=== PATIENT | female | born 1985 | race Caucasian/White ===

== ENCOUNTER 2016-04-06 01:58 | Emergency (ER) | payer MEDICARE, MEDICAID ==
[~2016-04-06] VITALS: Ht 160 cm; Wt 61.2 kg
[~2016-04-06 01:58] MED LIST: AMOXICILLIN500 M2 PO; AMOXICILLIN500 MG PO; ANAPROX DS550 MG PO; ATARAX,VISTARIL50 MG PO; ATARAX25 MG PO; ATIVAN1 MG PO; AUGMENTIN 875 M1 TAB PO; BACTRIM DS 8001 TA1 PO; BENADRYL25 MG PO; BENTYL20 MG PO; CARBIDOPA/LEVOD1 TA1 PO; CEPHALEXIN500 M1 PO; CIPRO250 MG PO; CLARITIN10 MG PO; DARVOCET N 1001 TAB PO; DIFLUCAN150 MG PO; DOXYCYCLINE HY100 M3 PO; DURICEF500 MG PO; EPI EZ PEN1 MG/ML IM; FLAGYL500 MG PO; FLEXERIL10 MG PO; FLOMAX0.4 MG PO; GEODON60 MG PO; HYDROCODONE BIT1 T11 PO; IBU-8800 MG PO; KEFLEX500 M1 PO; KEFLEX500 MG PO; KETOROLAC10 MG PO; KLONOPIN0.5 MG PO; LEVOFLOXACIN500 MG PO; LEXAPRO20 MG PO; LIDEX0.05% T; LOMOTIL 0.025 M1 TAB PO; MACROBID100 M1 PO; MEDROL DOSEPAK4 MG PO; MOTRIN800 MG PO; Motrin,Rufen800 MG PO; NAPROSYN500 MG PO; NITROFURANTOIN100 M2 PO; NKHM; NKHM PO; PEPCID20 MG PO; PERCOCET 325 MG1 TA5 PO; PERCOCET 325 MG1 TA6 PO; PERCOCET 325 MG1 TA7 PO; PREDNICOT20 MG PO; PREDNISONE10 MG PO; PREDNISONE20 MG PO; PRENATAL1 TA1 PO; PROVENTIL0.09 MG/AC IH; PYRIDIUM200 M1 PO; PYRIDIUM200 MG PO; RISPERDAL0.25 MG PO; SUBOXONE 8 MG-1 EACH SL; Synthroid,Levo25 MCG PO; TOBREX OPHTH S2.5 ML OPH; TRAMADOL HCL50 MG PO; TRAZADONE HYDR100 MG PO; ULTRAM50 MG PO; VALIUM10 MG PO; VIBRAMYCIN100 MG PO; VICODIN 5/500 505 MG PO; VICODIN 500 MG-1 TAB PO; XANAX0.5 MG PO; XANAX1 MG PO; XANAX2 MG PO; ZANTAC150 MG PO; ZITHROMAX Z PA250 MG PO; ZITHROMAX500 MG PO; ZOFRAN ODT4 MG SL; ZOFRAN4 MG PO
[2016-04-06] MEDS ORDERED: CLINDAMYCIN150 MG PO (02:20)
[2016-04-06] MEDS ORDERED: Bactroban Oint22 GM T (02:20)
[2016-04-06] MEDS ORDERED: BACTRIM DS 8001 TA1 PO (02:20)
[2016-05-06] MEDS ORDERED: SUBOXONE 8 MG-1 EACH SL (13:39)
[2016-05-06] MEDS ORDERED: BACTRIM DS 8001 TA1 PO (16:30)
[2016-05-12] MEDS ORDERED: AMINOPHYLLIN200 MG PO (19:24)
[2016-05-26] MEDS ORDERED: NAPROSYN500 MG PO (12:44)
[2016-05-26] MEDS ORDERED: CEFUROXIME250 MG PO (12:44)
[2016-05-26] MEDS ORDERED: ZOFRAN4 MG PO (12:44)
== END 2016-04-06 02:31 | disposition home or self-care (01) ==
LOC: ED 01:58
DX: L01.00 Impetigo, unspecified (principal); K21.9 Gastro-esophageal reflux disease without esophagitis; F14.10 Cocaine abuse, uncomplicated; F41.9 Anxiety disorder, unspecified; F12.10 Cannabis abuse, uncomplicated; F11.10 Opioid abuse, uncomplicated; F17.200 Nicotine dependence, unspecified, uncomplicated

== ENCOUNTER 2016-06-10 13:58 | Inpatient (IN) | payer MEDICARE, MEDICAID ==
[~2016-06-10] VITALS: Ht 160 cm; Wt 66.3 kg
[~2016-06-10 13:58] MED LIST changes: +AMINOPHYLLIN200 MG PO; +Bactroban Oint22 GM T; +CEFUROXIME250 MG PO; +CLINDAMYCIN150 MG PO
[2016-06-10 14:30] VITALS: BP 108/71
[2016-06-10 15:07] LABS: BASO # 0.1 10*3/uL (0.0-0.1); BASO % 0.7 % (0.0-1.0); EOS # 0.1 10*3/uL (0.0-0.4); EOS % 1.4 % (1.0-4.0); HEMATOCRIT 41.8 % (37.0-47.0); HEMOGLOBIN 13.5 g/dl (12.0-16.0); LYMPH # 1.7 10*3/uL (1.3-4.4); LYMPH % 18.1 % (27.0-41.0); MEAN CELL VOLUME 93.7 fl (81.0-99.0); MEAN CORPUSCULAR HGB 30.3 pg (27.0-31.0); MEAN CORPUSCULAR HGB CONC 32.3 g/dl (33.0-37.0); MEAN PLATELET VOLUME 9.1 fl (9.6-12.3); MONO # 0.9 10*3/uL (0.1-1.0); MONO % 9.6 % (3.0-9.0); NEUT # 6.4 10*3/uL (2.3-7.9); PLATELET COUNT AUTOMATED 381 10*3/uL (130-400); RED BLOOD COUNT 4.46 10*6/uL (4.10-5.10); RED CELL DISTRI WIDTH 13.9 % (0-14.5); WHITE BLOOD COUNT 9.1 10*3/uL (4.8-10.8)
[2016-06-10 15:18] LABS: PROTHROMBIN TIME 10.4 SECONDS (9.0-12.4)
[2016-06-10 15:24] LABS: ALBUMIN 3.7 gm/dl (3.1-4.5); CARBON DIOXIDE 27 mmol/L (21-32); CHLORIDE 103 mmol/L (98-107); EST GLOM FILT AFRICAN AMERICAN > 60 ml/min; GLUCOSE 76 mg/dL (65-99); POTASSIUM 3.6 mmol/L (3.5-5.1); SGOT/AST 148 IU/L (3-35); SGPT/ALT 261 U/L (12-78); SODIUM 139 mmol/L (136-145)
[2016-06-10 15:31] LABS: ALKALINE PHOSPHATASE 128 U/L (45-117); BILIRUBIN, TOTAL 0.3 mg/dl (0.2-1.0); BUN 10 mg/dl (7-24)
[2016-06-10 15:38] LABS: BILIRUBIN NEGATIVE (NEGATIVE); BLOOD TRACE-INTACT (NEGATIVE); CLARITY SL CLOUDY (CLEAR); COLOR YELLOW (YELLOW); GLUCOSE NEGATIVE (NEGATIVE); KETONE NEGATIVE (NEGATIVE); LEUKO ESTERASE TRACE (NEGATIVE); NITRITE POSITIVE (NEGATIVE); PROTEIN NEGATIVE (NEGATIVE); UROBILINOGEN 0.2 E.U./dl (0.2-1.0)
[2016-06-10 15:44] LABS: URINE AMPHETAMINES < 1000 (1000ng/ml); URINE BARBITURATES < 200 (200ng/ml); URINE COCAINE > 300 (300ng/ml)
[2016-06-10 15:53] LABS: BACTERIA 4+; EPITHELIAL CELLS 0-2; RBC 0-2 rbc/hpf (0-2); URINE REFLEX COMMENT YES (NO)
[2016-06-10 16:00] VITALS: BP 123/69
[2016-06-11] VITALS: BP 102/54
[2016-06-11 04:00] VITALS: BP 110/48
[2016-06-11 08:00] VITALS: BP 112/48
[2016-06-11 16:00] VITALS: BP 100/56
== END 2016-06-11 19:43 | disposition left against medical advice (07) | DRG 894 ==
LOC: 5E 13:58
PROVIDERS: Internal Medicine
DX: F11.23 Opioid dependence with withdrawal (principal); N39.0 Urinary tract infection, site not specified; B18.2 Chronic viral hepatitis C; Z53.21 Procedure and treatment not carried out due to patient leaving prior to being seen by health care provider; F41.9 Anxiety disorder, unspecified; K21.9 Gastro-esophageal reflux disease without esophagitis; F12.10 Cannabis abuse, uncomplicated; Z98.51 Tubal ligation status; Z98.891 History of uterine scar from previous surgery; Z90.49 Acquired absence of other specified parts of digestive tract; Z82.49 Family history of ischemic heart disease and other diseases of the circulatory system; Z83.3 Family history of diabetes mellitus; Z80.2 Family history of malignant neoplasm of other respiratory and intrathoracic organs; Z84.89 Family history of other specified conditions; Z79.899 Other long term (current) drug therapy; Z71.6 Tobacco abuse counseling

== ENCOUNTER 2016-08-27 14:16 | Emergency (ER) | payer MEDICARE, MEDICAID ==
[~2016-08-27] VITALS: Wt 63.5 kg
[2016-08-27 14:36] LABS: BILIRUBIN NEGATIVE (NEGATIVE); BLOOD NEGATIVE (NEGATIVE); CLARITY SL CLOUDY (CLEAR); COLOR YELLOW (YELLOW); GLUCOSE NEGATIVE (NEGATIVE); KETONE NEGATIVE (NEGATIVE); LEUKO ESTERASE NEGATIVE (NEGATIVE); NITRITE POSITIVE (NEGATIVE); PROTEIN NEGATIVE (NEGATIVE); UROBILINOGEN 0.2 E.U./dl (0.2-1.0)
[2016-08-27 14:49] LABS: BACTERIA 3+; URINE REFLEX COMMENT YES (NO)
[2016-08-27 14:50] LABS: EPITHELIAL CELLS 21-30; RBC 0-2 rbc/hpf (0-2)
[2016-08-27] MEDS ORDERED: FLONASE ALLERG9.9 ML NAS (14:56)
[2016-08-27] MEDS ORDERED: BACTRIM DS 8001 TA1 PO (14:56)
[2016-08-27] MEDS ORDERED: CLARITIN10 MG PO (14:56)
== END 2016-08-27 15:37 | disposition home or self-care (01) ==
LOC: ED 14:16
PROVIDERS: Emergency Medicine
DX: J06.9 Acute upper respiratory infection, unspecified (principal); N30.01 Acute cystitis with hematuria; F17.200 Nicotine dependence, unspecified, uncomplicated

== ENCOUNTER 2016-09-26 12:49 | Emergency (ER) | payer MEDICARE, MEDICAID ==
[~2016-09-26] VITALS: Ht 160 cm; Wt 68.0 kg
[~2016-09-26 12:49] MED LIST changes: +FLONASE ALLERG9.9 ML NAS
[2016-09-26] MEDS ORDERED: SUBOXONE 8 MG-1 EACH SL (13:03)
[2016-09-26] MEDS ORDERED: BACTRIM DS 8001 TA1 PO (13:12)
[2016-09-26] MEDS ORDERED: KEFLEX500 M1 PO (13:12)
[2016-09-26] MEDS ORDERED: NAPROSYN500 MG PO (13:13)
== END 2016-09-26 13:26 | disposition home or self-care (01) ==
LOC: ED 12:49
DX: L73.9 Follicular disorder, unspecified (principal); K21.9 Gastro-esophageal reflux disease without esophagitis; F11.10 Opioid abuse, uncomplicated; F12.10 Cannabis abuse, uncomplicated; F17.200 Nicotine dependence, unspecified, uncomplicated; Z86.19 Personal history of other infectious and parasitic diseases

== ENCOUNTER → 2016-10-25 | Outpatient (CLI) | payer MEDICARE, MEDICAID ==
[2016-10-25 13:16] LABS: ALKALINE PHOSPHATASE 78 U/L (45-117); BILIRUBIN, DIRECT < 0.1 mg/dL (0.0-0.2); BILIRUBIN, TOTAL 0.3 mg/dl (0.2-1.0); SGOT/AST 58 IU/L (3-35); SGPT/ALT 77 U/L (12-78); TOTAL PROTEIN 8.2 gm/dL (6.4-8.2)
== END | disposition home or self-care (01) ==
LOC: LAB 12:22
PROVIDERS: Family Medicine
DX: F11.20 Opioid dependence, uncomplicated (principal)

== ENCOUNTER → 2017-10-06 | Outpatient (CLI) | payer MEDICARE, MEDICAID ==
[2017-10-06 16:09] LABS: BASO # 0.1 10*3/uL (0.0-0.1); BASO % 0.6 % (0.0-1.0); EOS # 0.2 10*3/uL (0.0-0.4); EOS % 1.5 % (1.0-4.0); HEMATOCRIT 40.9 % (37.0-47.0); HEMOGLOBIN 12.8 g/dl (12.0-16.0); LYMPH # 2.1 10*3/uL (1.3-4.4); LYMPH % 15.5 % (27.0-41.0); MEAN CELL VOLUME 98.6 fl (81.0-99.0); MEAN CORPUSCULAR HGB 30.8 pg (27.0-31.0); MEAN CORPUSCULAR HGB CONC 31.3 g/dl (33.0-37.0); MONO # 0.7 10*3/uL (0.1-1.0); NEUT # 10.4 10*3/uL (2.3-7.9); PLATELET COUNT AUTOMATED 340 10*3/uL (130-400); RED BLOOD COUNT 4.15 10*6/uL (4.10-5.10); RED CELL DISTRI WIDTH 13.6 % (0-14.5); WHITE BLOOD COUNT 13.5 10*3/uL (4.8-10.8)
[2017-10-06 16:26] LABS: ALBUMIN 3.7 gm/dl (3.1-4.5); ALKALINE PHOSPHATASE 80 U/L (45-117); BILIRUBIN, DIRECT < 0.1 mg/dL (0.0-0.2); BUN 5 mg/dl (7-24); CHLORIDE 107 mmol/L (98-107); CREATININE 0.95 mg/dL (0.55-1.02); POTASSIUM 3.5 mmol/L (3.5-5.1); SGOT/AST 18 IU/L (3-35); SGPT/ALT 33 U/L (12-78); SODIUM 139 mmol/L (136-145); THYROXINE (T4) TOTAL 9.5 ug/dl (4.8-13.9)
[2017-10-06 16:29] LABS: THYROID STIM HORMONE (HS) 0.202 uIU/ml (0.358-4.75)
[2017-10-06 17:18] LABS: VITAMIN D, 25-HYDROXY 37.1 ng/mL (30-100)
[2017-10-10 22:05] LABS: HCV LOG10 5.738 (.); HEPATITIS C QNT 547000 IU/mL (.)
== END | disposition home or self-care (01) ==
LOC: LAB 15:03
PROVIDERS: Nurse Practitioner Family
DX: Z13.1 Encounter for screening for diabetes mellitus (principal); Z13.21 Encounter for screening for nutritional disorder; B19.20 Unspecified viral hepatitis C without hepatic coma; R60.9 Edema, unspecified; E55.9 Vitamin D deficiency, unspecified; Z79.899 Other long term (current) drug therapy; Z87.898 Personal history of other specified conditions; Z91.89 Other specified personal risk factors, not elsewhere classified; Z87.891 Personal history of nicotine dependence

== ENCOUNTER 2017-10-20 18:11 | Emergency (ER) | payer MEDICARE, MEDICAID ==
[~2017-10-20] VITALS: Ht 160 cm; Wt 67.6 kg
--- NOTE | ~2017-10-20 | EKG ---
[place], [place] ELECTROCARDIOGRAM REPORT NAME: MARK PAUL UNIT #: [id number] ROOM: DOCTOR: EPIPHANY DRAFT REPORT BIRTHDATE: [birth year] [facility] Test Date: 2017-10-20 Test Time: 18:36:15 Pat Name: MARK PAUL Department: Room: Gender: F Learning Facilitator: EKG.OK : 1985 Requested By: BLANCA FARR DNP Order Number: [id number] Reading MD: Natalia Gilliam MD Measurements Intervals [place] Rate: 62 P: 19 AR: 185 QRS: 70 QRSD: 103 T: 42 QT: 412 QTc: 419 Interpretive Statements Sinus rhythm Electronically Signed On 10-22-2017 9:32:31 PDT by Natalia Gilliam MD CM:EKGRPT:ELECTROCARDIOGRAM REPORT [id number] BLANCA GOODWIN DRAFT REPORT BLANCA FARR DNP
[2017-10-20 18:52] LABS: BASO # 0.1 10*3/uL (0.0-0.1); BASO % 0.6 % (0.0-1.0); EOS # 0.2 10*3/uL (0.0-0.4); EOS % 1.3 % (1.0-4.0); HEMATOCRIT 38.4 % (37.0-47.0); HEMOGLOBIN 12.5 g/dl (12.0-16.0); LYMPH # 2.3 10*3/uL (1.3-4.4); LYMPH % 18.1 % (27.0-41.0); MEAN CORPUSCULAR HGB 30.9 pg (27.0-31.0); MEAN CORPUSCULAR HGB CONC 32.6 g/dl (33.0-37.0); MEAN PLATELET VOLUME 9.6 fl (9.6-12.3); MONO # 0.7 10*3/uL (0.1-1.0); MONO % 5.9 % (3.0-9.0); NEUT # 9.2 10*3/uL (2.3-7.9); NEUT % 73.8 % (47.0-73.0); PLATELET COUNT AUTOMATED 358 10*3/uL (130-400); RED BLOOD COUNT 4.04 10*6/uL (4.10-5.10); RED CELL DISTRI WIDTH 13.2 % (0-14.5); WHITE BLOOD COUNT 12.4 10*3/uL (4.8-10.8)
[2017-10-20 19:08] LABS: ALBUMIN 3.5 gm/dl (3.1-4.5); ALKALINE PHOSPHATASE 72 U/L (45-117); BUN 11 mg/dl (7-24); CHLORIDE 108 mmol/L (98-107); CREATININE 0.95 mg/dL (0.55-1.02); POTASSIUM 3.6 mmol/L (3.5-5.1); SGOT/AST 19 IU/L (3-35); SGPT/ALT 23 U/L (12-78); SODIUM 139 mmol/L (136-145); TOTAL PROTEIN 7.2 gm/dL (6.4-8.2)
[2017-10-20 19:09] LABS: BILIRUBIN NEGATIVE (NEGATIVE); BLOOD NEGATIVE (NEGATIVE); CLARITY CLEAR (CLEAR); COLOR YELLOW (YELLOW); GLUCOSE NEGATIVE (NEGATIVE); KETONE NEGATIVE (NEGATIVE); LEUKO ESTERASE NEGATIVE (NEGATIVE); NITRITE NEGATIVE (NEGATIVE); SPECIFIC GRAVITY 1.025 (1.005-1.030); UROBILINOGEN 0.2 E.U./dl (0.2-1.0)
[2017-10-20 19:14] LABS: BACTERIA 1+; MUCOUS TRACE
== END 2017-10-20 19:55 ==
LOC: ED 18:11
PROVIDERS: Nurse Practitioner Family
DX: R39.15 Urgency of urination (principal); R78.81 Bacteremia; R10.30 Lower abdominal pain, unspecified; F14.90 Cocaine use, unspecified, uncomplicated; F17.200 Nicotine dependence, unspecified, uncomplicated; Z90.89 Acquired absence of other organs; Z98.890 Other specified postprocedural states; Z98.51 Tubal ligation status; Z90.49 Acquired absence of other specified parts of digestive tract

== ENCOUNTER 2017-11-14 04:51 | Emergency (ER) | payer MEDICARE ==
[~2017-11-14] VITALS: Ht 160 cm; Wt 63.5 kg
[2017-11-14] MEDS ORDERED: CLINDAMYCIN150 MG PO (05:28)
[2017-11-14] MEDS ORDERED: KEFLEX250 MG PO (05:28)
[2018-01-05] MEDS ORDERED: PYRIDIUM200 M1 PO (09:57)
[2018-01-05] MEDS ORDERED: MACROBID100 M1 PO (09:57)
[2018-01-05] MEDS ORDERED: ZOFRAN4 MG PO (09:57)
== END 2017-11-14 05:31 | disposition home or self-care (01) ==
LOC: ED 04:51
DX: L02.91 Cutaneous abscess, unspecified (principal); F17.200 Nicotine dependence, unspecified, uncomplicated; Z98.890 Other specified postprocedural states; Z90.49 Acquired absence of other specified parts of digestive tract; Z98.51 Tubal ligation status

== ENCOUNTER 2018-02-26 09:40 | Inpatient (IN) | payer MEDICARE, MEDICAID ==
[~2018-02-26] VITALS: Ht 160 cm; Wt 64.8 kg
--- NOTE | ~2018-02-26 | EKG ---
[place], [place] ELECTROCARDIOGRAM REPORT NAME: MARK PAUL UNIT #: [id number] ROOM: 520 DOCTOR: BUDDY DRAFT REPORT BIRTHDATE: [birth year] [facility] Test Date: 2018-02-26 Test Time: 15:19:21 Pat Name: MARK PAUL Department: Room: 520 1 Gender: F Facilities Management Executive: 0012 : 1985 Requested By: NARENDRA THORPE Order Number: [id number] Reading MD: Brendan Segura MD Measurements Intervals [place] Rate: 64 P: 51 TN: 173 QRS: 80 QRSD: 99 T: 54 QT: 413 QTc: 426 Interpretive Statements Sinus rhythm Compared to ECG 10/20/2017 18:36:15 No significant changes Electronically Signed On 02-26-2018 17:11:05 PST by Brendan Segura MD CM:EKGRPT:ELECTROCARDIOGRAM REPORT [id number] NARENDRA WAGNER DRAFT REPORT NARENDRA THORPE DO
[~2018-02-26 09:40] MED LIST changes: +KEFLEX250 MG PO
[2018-02-26 10:40] VITALS: BP 97/73
[2018-02-26 12:41] LABS: BASO # 0.1 10*3/uL (0.0-0.1); BASO % 0.8 % (0.0-1.0); EOS # 0.2 10*3/uL (0.0-0.4); EOS % 2.5 % (1.0-4.0); HEMOGLOBIN 12.3 g/dl (12.0-16.0); LYMPH # 1.8 10*3/uL (1.3-4.4); LYMPH % 21.9 % (27.0-41.0); MEAN CORPUSCULAR HGB 28.3 pg (27.0-31.0); MEAN CORPUSCULAR HGB CONC 30.8 g/dl (33.0-37.0); MEAN PLATELET VOLUME 9.4 fl (9.6-12.3); MONO # 0.6 10*3/uL (0.1-1.0); MONO % 7.4 % (3.0-9.0); NEUT # 5.7 10*3/uL (2.3-7.9); NEUT % 67.2 % (47.0-73.0); PLATELET COUNT AUTOMATED 412 10*3/uL (130-400); RED BLOOD COUNT 4.35 10*6/uL (4.10-5.10); RED CELL DISTRI WIDTH 13.9 % (0-14.5); WHITE BLOOD COUNT 8.4 10*3/uL (4.8-10.8)
[2018-02-26 12:57] LABS: ALBUMIN 3.3 gm/dl (3.1-4.5); ALKALINE PHOSPHATASE 83 U/L (45-117); BUN 6 mg/dl (7-24); CHLORIDE 105 mmol/L (98-107); CREATININE 0.71 mg/dL (0.55-1.02); POTASSIUM 4.1 mmol/L (3.5-5.1); SGOT/AST 27 IU/L (3-35); SGPT/ALT 30 U/L (12-78); SODIUM 137 mmol/L (136-145); TOTAL PROTEIN 7.3 gm/dL (6.4-8.2)
[2018-02-26 13:01] LABS: BETA-HCG, QUANT < 1.0 mIU/mL (1-3); ETHYL ALCOHOL < 3.0 mg/dl (<3)
[2018-02-26 14:12] LABS: BILIRUBIN NEGATIVE (NEGATIVE); BLOOD NEGATIVE (NEGATIVE); CLARITY SL CLOUDY (CLEAR); COLOR YELLOW (YELLOW); GLUCOSE NEGATIVE (NEGATIVE); KETONE NEGATIVE (NEGATIVE); LEUKO ESTERASE TRACE (NEGATIVE); NITRITE POSITIVE (NEGATIVE); SPECIFIC GRAVITY <= 1.005 (1.005-1.030); UROBILINOGEN 0.2 E.U./dl (0.2-1.0)
[2018-02-26 14:21] LABS: URINE AMPHETAMINES < 1000 (1000ng/ml); URINE BARBITURATES < 200 (200ng/ml); URINE BENZODIAZEPINES < 200 (200ng/ml); URINE CANNABINOIDS (THC) > 50 (50ng/ml); URINE COCAINE > 300 (300ng/ml); URINE METHADONE < 300 (300ng/ml); URINE OPIATES > 300 (300ng/ml)
[2018-02-26 14:22] LABS: BACTERIA 3+
[2018-02-26 14:35] LABS: URINE PHENCYCLIDINE < 25 (25ng/ml)
[2018-02-26 16:00] VITALS: BP 110/61
[2018-02-26 20:00] VITALS: BP 98/49
[2018-02-27] VITALS: BP 95/47
[2018-02-27 04:00] VITALS: BP 100/48
[2018-02-27 08:00] VITALS: BP 104/58
[2018-02-27 12:00] VITALS: BP 101/63
[2018-02-27 16:00] VITALS: BP 110/64
[2018-02-27 20:00] VITALS: BP 100/45
[2018-02-28] VITALS: BP 95/52
[2018-02-28 08:00] VITALS: BP 94/53
[2018-02-28 16:00] VITALS: BP 107/60
[2018-02-28 20:00] VITALS: BP 104/50
[2018-03-01] VITALS: BP 132/67
[2018-03-01 07:33] LABS: BASO # 0.1 10*3/uL (0.0-0.1); EOS # 0.2 10*3/uL (0.0-0.4); EOS % 2.9 % (1.0-4.0); HEMATOCRIT 37.3 % (37.0-47.0); HEMOGLOBIN 11.9 g/dl (12.0-16.0); LYMPH % 25.6 % (27.0-41.0); MEAN CELL VOLUME 90.8 fl (81.0-99.0); MEAN CORPUSCULAR HGB CONC 31.9 g/dl (33.0-37.0); MEAN PLATELET VOLUME 9.5 fl (9.6-12.3); MONO # 0.6 10*3/uL (0.1-1.0); MONO % 7.4 % (3.0-9.0); NEUT # 4.9 10*3/uL (2.3-7.9); PLATELET COUNT AUTOMATED 396 10*3/uL (130-400); RED BLOOD COUNT 4.11 10*6/uL (4.10-5.10); RED CELL DISTRI WIDTH 13.5 % (0-14.5); WHITE BLOOD COUNT 7.9 10*3/uL (4.8-10.8)
[2018-03-01 07:34] LABS: CREATININE 0.78 mg/dL (0.55-1.02)
[2018-03-01 08:00] VITALS: BP 90/53
[2018-03-01] MEDS ORDERED: ATARAX,VISTARIL50 MG PO (11:52)
[2018-03-01] MEDS ORDERED: NITROFURANTOIN100 M9 PO (11:52)
[2018-03-01] MEDS ORDERED: ZOFRAN 4 MG ED2 TAB PO (11:52)
== END 2018-03-01 12:48 | disposition home or self-care (01) | DRG 897 ==
LOC: 5E 09:40
PROVIDERS: Family Medicine; Internal Medicine
DX: F11.23 Opioid dependence with withdrawal (principal); E44.0 Moderate protein-calorie malnutrition; N30.00 Acute cystitis without hematuria; F12.10 Cannabis abuse, uncomplicated; F14.90 Cocaine use, unspecified, uncomplicated; D47.3 Essential (hemorrhagic) thrombocythemia; K21.9 Gastro-esophageal reflux disease without esophagitis; B18.2 Chronic viral hepatitis C; F31.9 Bipolar disorder, unspecified; F43.10 Post-traumatic stress disorder, unspecified; B96.20 Unspecified Escherichia coli [E. coli] as the cause of diseases classified elsewhere; F17.210 Nicotine dependence, cigarettes, uncomplicated; Z71.6 Tobacco abuse counseling; Z98.51 Tubal ligation status; Z90.49 Acquired absence of other specified parts of digestive tract; Z82.49 Family history of ischemic heart disease and other diseases of the circulatory system; Z83.3 Family history of diabetes mellitus; Z80.8 Family history of malignant neoplasm of other organs or systems; Z82.3 Family history of stroke; Z68.25 Body mass index [BMI] 25.0-25.9, adult

== ENCOUNTER 2018-11-04 00:52 | Emergency (ER) | payer MEDICARE ==
[~2018-11-04] VITALS: Ht 160 cm; Wt 63.5 kg
--- NOTE | ~2018-11-04 | EKG ---
[place], [place] ELECTROCARDIOGRAM REPORT NAME: MARK PAUL UNIT #: [id number] ROOM: DOCTOR: EPIPHANY DRAFT REPORT BIRTHDATE: [birth year] [facility] Test Date: 2018-11-04 Test Time: 01:48:24 Pat Name: MARK PAUL Department: Room: Gender: F Gang Boss: : 1985 Requested By: JOSE WALSH Order Number: [id number] Reading MD: Frances Dill MD Measurements Intervals [place] Rate: 103 P: 31 MS: 160 QRS: 49 QRSD: 95 T: 31 QT: 322 QTc: 422 Interpretive Statements Sinus tachycardia Probable left atrial enlargement Baseline wander in lead(s) V2 Compared to ECG 02/26/2018 15:19:21 Sinus rhythm no longer present Electronically Signed On 11-05-2018 15:00:35 PDT by Frances Dill MD CM:EKGRPT:ELECTROCARDIOGRAM REPORT [id number] 1500 JOSE WALSH EPIPHANY DRAFT REPORT JOSE WALSH
[~2018-11-04 00:52] MED LIST changes: +NITROFURANTOIN100 M9 PO; +ZOFRAN 4 MG ED2 TAB PO
[2018-11-04 02:19] LABS: BASO # 0.1 10*3/uL (0.0-0.1); BASO % 0.4 % (0.0-1.0); EOS # 0.1 10*3/uL (0.0-0.4); EOS % 0.9 % (1.0-4.0); HEMATOCRIT 37.7 % (37.0-47.0); HEMOGLOBIN 11.5 g/dl (12.0-16.0); LYMPH # 1.3 10*3/uL (1.3-4.4); LYMPH % 9.2 % (27.0-41.0); MEAN CORPUSCULAR HGB CONC 30.5 g/dl (33.0-37.0); MEAN PLATELET VOLUME 9.2 fl (9.6-12.3); MONO # 0.2 10*3/uL (0.1-1.0); MONO % 1.7 % (3.0-9.0); NEUT # 12.2 10*3/uL (2.3-7.9); NEUT % 87.4 % (47.0-73.0); PLATELET COUNT AUTOMATED 469 10*3/uL (130-400); RED BLOOD COUNT 3.97 10*6/uL (4.10-5.10); RED CELL DISTRI WIDTH 15.4 % (0-14.5)
[2018-11-04 02:27] LABS: URINE AMPHETAMINES < 1000 (1000ng/ml); URINE BARBITURATES < 200 (200ng/ml); URINE BENZODIAZEPINES < 200 (200ng/ml); URINE CANNABINOIDS (THC) > 50 (50ng/ml); URINE COCAINE > 300 (300ng/ml); URINE METHADONE < 300 (300ng/ml); URINE OPIATES > 300 (300ng/ml)
[2018-11-04 02:29] LABS: URINE PHENCYCLIDINE < 25 (25ng/ml)
[2018-11-04] MEDS ORDERED: HIBICLENS118 ML T (02:29)
[2018-11-04] MEDS ORDERED: Bactroban Oint22 GM T (02:29)
[2018-11-04] MEDS ORDERED: CLEOCIN HCL300 MG PO (02:29)
[2018-11-04] MEDS ORDERED: TYLENOL325 M1 PO (02:29)
[2018-11-04 02:37] LABS: BUN 13 mg/dl (7-24); CHLORIDE 104 mmol/L (98-107); CREATININE 0.87 mg/dL (0.55-1.02); POTASSIUM 3.9 mmol/L (3.5-5.1); SODIUM 138 mmol/L (136-145)
[2018-11-04 02:38] LABS: TROPONIN I < 0.015 ng/ml (<0.045)
[2018-11-04 02:59] LABS: BILIRUBIN NEGATIVE (NEGATIVE); BLOOD NEGATIVE (NEGATIVE); CLARITY CLEAR (CLEAR); COLOR YELLOW (YELLOW); GLUCOSE NEGATIVE (NEGATIVE); KETONE NEGATIVE (NEGATIVE); LEUKO ESTERASE NEGATIVE (NEGATIVE); NITRITE POSITIVE (NEGATIVE); UROBILINOGEN 0.2 E.U./dl (0.2-1.0)
[2018-11-04 03:07] LABS: BACTERIA 4+
== END 2018-11-04 04:27 | disposition left against medical advice (07) ==
LOC: ED 00:52
PROVIDERS: Nurse Practitioner
DX: L02.01 Cutaneous abscess of face (principal); N76.0 Acute vaginitis; A49.02 Methicillin resistant Staphylococcus aureus infection, unspecified site; R07.9 Chest pain, unspecified; R05 Cough; F17.210 Nicotine dependence, cigarettes, uncomplicated; Z72.0 Tobacco use

== ENCOUNTER 2019-02-14 23:07 | Emergency (ER) | payer MEDICARE ==
[~2019-02-14 23:07] MED LIST changes: +CLEOCIN HCL300 MG PO; +HIBICLENS118 ML T; +TYLENOL325 M1 PO
== END 2019-02-15 00:15 | disposition left against medical advice (07) ==
LOC: ED 23:07
DX: R41.82 Altered mental status, unspecified (principal); Z53.21 Procedure and treatment not carried out due to patient leaving prior to being seen by health care provider

== ENCOUNTER 2020-08-08 22:17 | Emergency (ER) | payer MEDICARE ==
[~2020-08-08] VITALS: Ht 160 cm; Wt 74.4 kg
== END 2020-08-08 23:35 | disposition left against medical advice (07) ==
LOC: ED 22:17
DX: T50.901A Poisoning by unspecified drugs, medicaments and biological substances, accidental (unintentional), initial encounter (principal); R40.20 Unspecified coma; F17.200 Nicotine dependence, unspecified, uncomplicated; Z79.2 Long term (current) use of antibiotics; Z79.899 Other long term (current) drug therapy; Z90.89 Acquired absence of other organs; Z90.49 Acquired absence of other specified parts of digestive tract; Z98.890 Other specified postprocedural states; Z98.51 Tubal ligation status; Y92.480 Sidewalk as the place of occurrence of the external cause

== ENCOUNTER 2020-09-04 00:38 | Emergency (ER) | payer MEDICARE ==
[~2020-09-04] VITALS: Ht 160 cm; Wt 68.9 kg
== END 2020-09-04 03:12 | disposition home or self-care (01) ==
LOC: ED 00:38
DX: B37.3 Candidiasis of vulva and vagina (principal); Z79.899 Other long term (current) drug therapy; Z98.890 Other specified postprocedural states; Z98.51 Tubal ligation status; Z90.49 Acquired absence of other specified parts of digestive tract

== ENCOUNTER → 2020-09-04 | Outpatient (CLI) | payer MEDICARE | END | disposition home or self-care (01) | LOC: US 10:56 | PROVIDERS: ATTEND Nurse Practitioner Women's Health | DX: N85.00 Endometrial hyperplasia, unspecified (principal) ==

== ENCOUNTER 2020-10-19 23:25 | Emergency (ER) | payer MEDICARE ==
[2020-10-19] MEDS ORDERED: SEPTDS PO (23:41)
== END 2020-10-19 23:43 | disposition home or self-care (01) ==
LOC: ED 23:25
DX: L02.212 Cutaneous abscess of back [any part, except buttock and flank] (principal); L02.416 Cutaneous abscess of left lower limb; F17.200 Nicotine dependence, unspecified, uncomplicated; Z79.2 Long term (current) use of antibiotics; Z79.899 Other long term (current) drug therapy; Z90.89 Acquired absence of other organs; Z90.49 Acquired absence of other specified parts of digestive tract; Z98.890 Other specified postprocedural states

== ENCOUNTER 2020-11-05 10:24 | Emergency (ER) | payer MEDICARE ==
[~2020-11-05] VITALS: Wt 68.0 kg
[~2020-11-05 10:24] MED LIST changes: +SEPTDS PO
[2020-11-05] MEDS ORDERED: NYST SUSP PO (11:19)
[2020-11-05] MEDS ORDERED: KENALOG 0.025%15 GM T (11:19)
[2020-11-05] MEDS ORDERED: CLOTRIMAZOLE-745 GM V (11:19)
== END 2020-11-05 11:33 | disposition home or self-care (01) ==
LOC: ED 10:24
DX: L23.9 Allergic contact dermatitis, unspecified cause (principal); B37.3 Candidiasis of vulva and vagina; B37.0 Candidal stomatitis

== ENCOUNTER 2024-07-07 20:07 | Emergency (ER) | payer OTHER, MEDICAID ==
[~2024-07-07] VITALS: Ht 160 cm; Wt 59.0 kg
[~2024-07-07 20:07] MED LIST changes: +CLOTRIMAZOLE-745 GM V; +KENALOG 0.025%15 GM T; +NYST SUSP PO
[2024-07-07] MEDS ORDERED: CEPHALEXIN500 M1 PO (20:38)
[2024-07-07] MEDS ORDERED: SEPTDS PO (20:38)
[2024-07-07] MEDS ORDERED: Sulfamethoxazole/Trimethopri 1 TAB TAB PO ONE (20:40)
[2024-07-07] MEDS ORDERED: IBUPROFEN 800 MG TAB PO ONE (20:40)
[2024-07-07] MEDS ORDERED: CEPHALEXIN 500 MG CAP PO ONE (20:40)
== END 2024-07-07 20:44 | disposition home or self-care (01) ==
LOC: ED 20:07
DX: L03.116 Cellulitis of left lower limb (principal); L03.115 Cellulitis of right lower limb; Z79.899 Other long term (current) drug therapy; Z98.890 Other specified postprocedural states; Z90.49 Acquired absence of other specified parts of digestive tract; Z87.891 Personal history of nicotine dependence